=== PATIENT | male | born 1980 | race Caucasian/White ===

== ENCOUNTER 2021-04-30 15:06 | Emergency (ER) | payer OTHER, SELFPAY ==
--- NOTE | 2021-04-30 15:09 | ED.LOWEXIN ---
HPI - Extremity Injury (Lower) General Chief Complaint: Extremity Injury, Lower Stated Complaint: L FOOT PAIN Time Seen by Provider: 04/30/21 15:09 Source: patient and RN notes reviewed History of Present Illness HPI Narrative: Patient is a 40-year-old male who presents the urgent care with complaints of pain to the left foot. Patient states that he noticed a raised area to the lateral left foot on Wednesday after running Wednesday evening. Patient states that it is painful when running however it is not painful to walk. Patient states that pressure makes the area painful. Reports of ice and elevation. Patient is an avid runner and denies of any recent falls, injury or rolling of the foot. Denies of any pain at rest or with weightbearing. No other acute complaints. No acute distress noted. Patient read the plan of care. Some parts of this dictation were generated by voice recognition software and may contain typographical and/or grammatical inaccuracies. Related Data Home Medications Medication Instructions Recorded Confirmed No Home Medications 04/30/21 04/30/21 Allergies Allergy/AdvReac Type Severity Reaction Status Date / Time No Known Allergies Allergy Verified 04/30/21 15:15 Review of Systems Review of Systems: CONSTITUTIONAL: Denies fever, chills, or sweats. EYES: Denies visual changes, redness, or discharge. ENT: Denies rhinorrhea, congestion, sore throat, or otalgia. CARDIOVASCULAR: Denies chest pain, palpitations, or edema. RESPIRATORY: Denies cough or dyspnea. GASTROINTESTINAL: Denies abdominal pain, nausea, vomiting, or diarrhea. GENITOURINARY: Denies dysuria or hematuria. SKIN: Denies rash or itching. MUSCULOSKELETAL: Reports of left foot pain NEUROLOGIC: Denies headache, numbness, or weakness. All other systems reviewed are negative, except as documented in HPI. [facility] Past Medical History Medical History (Updated 04/30/21 @ 15:28 by EJ Selby) Exercise-induced asthma Comments At the time of my signature, I reviewed and agree with the nursing past medical, surgical, social, and family history. There is no relevant family history pertinent to the patient complaint. Exam Narrative: GENERAL: This is a well-nourished, well-developed patient, in no apparent distress. HEAD: normocephalic, atraumatic. EYES: PERRL. Sclera clear/white. Vision is grossly intact. EARS: External ears normal NOSE: External nose normal with no obvious nasal discharge, nares without redness, no rhinorrhea. THROAT: Mucous membranes moist NECK: Neck supple CARDIOVASCULAR: Regular rate and rhythm without murmurs, gallops, or rubs. RESPIRATORY: Clear to auscultation. Breath sounds equal bilaterally. No wheezes, rales, or rhonchi. SKIN: warm, intact with no suspicious lesions or rash, good texture and turgor. NEURO: awake, alert, and oriented to person, place and time. There were no obvious focal neurologic abnormalities. EXTREMITIES: No clubbing, cyanosis, or edema. No joint tenderness, effusion, or edema noted. Ganglion cyst noted to the left lateral foot with moderate tenderness with pressure Course Vital Signs Vital signs: Vital Signs Temperature 97.4 F L 04/30/21 15:19 Pulse Rate 55 L 04/30/21 15:19 Respiratory Rate 16 04/30/21 15:19 Blood Pressure 127/95 H 04/30/21 15:19 Pulse Oximetry 98 04/30/21 15:19 Temperature 97.4 F L 04/30/21 15:19 Pulse Rate 55 L 04/30/21 15:19 Respiratory Rate 16 04/30/21 15:19 Blood Pressure 127/95 H 04/30/21 15:19 Pulse Oximetry 98 04/30/21 15:19 Reviewed-patient is informed that they may have pre-hypertension or hypertension based on a blood pressure reading in the department. I recommend the patient call the primary care provider listed on their discharge instructions or a physician of their choice this week to arrange follow-up for further evaluation of possible pre-hypertension or hypertension. MDM - Extremity Injury (Lower) MDM Narrative M
[2021-04-30 15:19] VITALS: BP 127/95; PULSE 55; RESP 16; TEMP 36.3; O2SAT 98
== END 2021-04-30 15:34 | disposition home or self-care (01) ==
PROVIDERS: Emergency Provider Nurse Practitioner Family; PCP Family Medicine
DX: M67.472 Ganglion, left ankle and foot (principal); J45.990 Exercise induced bronchospasm
CPT/HCPCS: 99213; G0463